=== PATIENT | female | born 1945 | race Caucasian/White ===

== ENCOUNTER 2022-08-03 14:01 | Outpatient (CLI) | payer MEDICARE, BC | END 2022-08-03 14:02 | disposition home or self-care (01) | LOC: BICRAD 14:01 | PROVIDERS: ATTEND Family Medicine | DX: R05.9 Cough, unspecified (principal) | CPT/HCPCS: 71046 ==

== ENCOUNTER 2024-06-30 22:37 | Emergency (ER) | payer MEDICARE, BC ==
[2024-06-30] MEDS ORDERED: Phenazopyridine HCl 100 MG TAB ONE (23:10)
[2024-06-30 23:15] LABS: Bilirubin Negative (Negative); Blood, Urine 3+ (Negative); CAUTI Indications for Culture Dysuria,urgency,freq; Clarity Clear (Clear); Glucose, Urine (Dipstick) Normal (Negative); Ketone, Urine Negative (Negative); Leukocyte 250 Leu/uL (Negative); Nitrite Negative (Negative); Protein, Urine (Dipstick) Negative (Neg-Trace); Specific Gravity, Urine 1.009 (1.002-1.036); Squamous Epithelial 0-3 HPF (0-3); Urobilinogen Normal mg/dL (Less than 2)
[2024-06-30 23:19] LABS: Bacteria/HPF Rare-Few HPF (None Seen)
[2024-06-30 23:20] LABS: Urine Culture Reflex No No
[2024-06-30] MEDS ORDERED: Cephalexin 250 MG CAP ONE (23:34)
== END 2024-07-01 00:11 | disposition home or self-care (01) ==
LOC: ERS 22:37
DX: N39.0 Urinary tract infection, site not specified (principal); I10 Essential (primary) hypertension
CPT/HCPCS: 81001; 99283

== ENCOUNTER 2024-07-12 12:20 | Outpatient (CLI) | payer MEDICARE, BC ==
[2024-07-12] MEDS ORDERED: Iopamidol 370 76% 100 ML VIAL ONE (12:44)
== END 2024-07-12 12:21 | disposition home or self-care (01) ==
LOC: CT 12:20
PROVIDERS: ATTEND Family Medicine
DX: R51.9 Headache, unspecified (principal)
CPT/HCPCS: 36415; 70470; 82565; Q9967

== ENCOUNTER 2024-07-22 15:16 | Outpatient (CLI) | payer MEDICARE, BC | END 2024-07-22 15:17 | disposition home or self-care (01) | LOC: SCSMRI 15:16 | PROVIDERS: ATTEND Family Medicine | DX: R51.9 Headache, unspecified (principal); I67.89 Other cerebrovascular disease | CPT/HCPCS: 70553; 76376 ==

== ENCOUNTER 2024-07-29 09:26 | Inpatient (IN) | payer MEDICARE, BC ==
[2024-07-29 10:36] LABS: #Basophils Less than 0.03 10x3/uL (0.0-0.2); %Lymphocytes 7.5 % (21.0-51.0); %Monocytes 7.1 % (0.0-10.0); %Neutrophils 83.4 % (42.0-75.0); Hematocrit 32.7 % (36.0-47.0); Hemoglobin 11.2 g/dL (12.0-16.0); Mean Corpuscular HGB CONC 34.3 g/dL (32.0-36.0); Mean Corpuscular Hemoglobin 32.7 pg (27.0-31.0); Mean Corpuscular Volume 95.3 fL (78.0-98.0); Mean Platelet Volume 9.2 fL (7.4-10.4); Platelet Count 112 10x3/uL (130-400); RBC Distribution Width 13.8 % (11.5-14.5); Red Blood Cell (RBC) Count 3.43 mill/uL (4.20-5.40)
[2024-07-29] MEDS ORDERED: Iopamidol-370 76% 500 ML MDV (1 ML CHARGE) ONE (10:37)
[2024-07-29 10:46] LABS: ALT (SGPT) 17 U/L (8-55); AST (SGOT) 21 U/L (5-34); Albumin 3.6 g/dL (3.4-4.8); Alkaline Phosphatase 67 U/L (40-110); Anion Gap 11 mmol/L (10-20); BUN (Urea Nitrogen) 24 mg/dL (9.8-20.1); Bilirubin, Total 0.8 mg/dL (0.2-1.2); Calc. Creatinine Clearance 0 mL/min (70-130); Calcium 8.8 mg/dL (7.8-10.44); Carbon Dioxide 30 mmol/L (23-31); Chloride 101 mmol/L (98-107); Estimated GFR 41; Globulin 1.9 g/dL (2.4-3.5); Glucose 117 mg/dL (83-110); Potassium 3.6 mmol/L (3.5-5.1); Protein, Total 5.5 g/dL (5.8-8.1); Sodium 138 mmol/L (136-145)
[2024-07-29 10:48] LABS: Troponin I Less than 0.010 ng/mL (< 0.028)
[2024-07-29] MEDS ORDERED: Ondansetron ODT 4 MG TAB PO PRN (13:57)
[2024-07-29] MEDS ORDERED: Acetaminophen 325 MG TAB PO PRN (13:57)
[2024-07-29] MEDS ORDERED: Ondansetron PF 4 MG/2 ML Vial IVP PRN (13:57)
[2024-07-29] MEDS ORDERED: Acetaminophen 650 MG Suppository PR PRN (13:57)
[2024-07-29] MEDS ORDERED: cloNIDine 0.1 MG TAB PO PRN (16:14)
[2024-07-29] MEDS ORDERED: cloNIDine 0.1 MG TAB ONE (16:17)
[2024-07-29] MEDS: cloNIDine 0.1 MG TAB PO SCH (17:31)
[2024-07-29 18:11] VITALS: BMI 24.3
[2024-07-29] MEDS: Amitriptyline HCl 10 MG TAB PO SCH (21:10)
[2024-07-30 04:27] LABS: #Basophils Less than 0.03 10x3/uL (0.0-0.2); %Eosinophils 1.5 % (0.0-10.0); %Lymphocytes 14.2 % (21.0-51.0); %Monocytes 9.2 % (0.0-10.0); %Neutrophils 75.1 % (42.0-75.0); Hemoglobin 10.1 g/dL (12.0-16.0); Mean Corpuscular HGB CONC 33.7 g/dL (32.0-36.0); Mean Corpuscular Hemoglobin 33.2 pg (27.0-31.0); Mean Corpuscular Volume 98.7 fL (78.0-98.0); Platelet Count 95 10x3/uL (130-400); RBC Distribution Width 13.8 % (11.5-14.5); Red Blood Cell (RBC) Count 3.04 mill/uL (4.20-5.40)
[2024-07-30 05:22] LABS: Anion Gap 12 mmol/L (10-20); BUN (Urea Nitrogen) 26 mg/dL (9.8-20.1); Calc. Creatinine Clearance 36 mL/min (70-130); Calcium 8.4 mg/dL (7.8-10.44); Carbon Dioxide 27 mmol/L (23-31); Chloride 105 mmol/L (98-107); Estimated GFR 41; Glucose 89 mg/dL (83-110); Potassium 3.8 mmol/L (3.5-5.1); Sodium 140 mmol/L (136-145)
[2024-07-30] MEDS ORDERED: Non-Formulary Item 1 EACH (Fluticasone Propionate [Fluticasone Propionate] 50 MCG Blst.W. IH PRN (07:40)
[2024-07-30] MEDS ORDERED: Non-Formulary Item 1 EACH (Timolol Maleate/Pf [Timolol Maleate 0.5% Eye Drop] 1 EACH Drop EA EYE SCH (09:00)
[2024-07-30] MEDS ORDERED: Pantoprazole DR 40 MG TAB PO SCH (09:00)
[2024-07-30] MEDS ORDERED: Fluticasone Propionate Nasal Spray 16 gm Bottle NASAL PRN (09:00)
[2024-07-30] MEDS ORDERED: Furosemide 20 MG TAB PO SCH (09:00)
[2024-07-30] MEDS: Furosemide 20 MG TAB PO SCH (09:03)
[2024-07-30] MEDS: HYDROcodone/Acetaminophen 5/325 mg Tablet PO PRN (09:05)
[2024-07-30] MEDS: Senokot S 8.6-50 MG TAB PO PRN (09:06)
[2024-07-30] MEDS: Pantoprazole DR 40 MG TAB PO SCH (09:22)
[2024-07-30] MEDS: Timolol 0.5% Ophth Soln 5 ml Bottle EA EYE SCH (09:23)
[2024-07-30] MEDS: Sodium Chloride 0.9% 1,000 ML IV SCH (14:54)
[2024-07-31 04:01] LABS: Anion Gap 10 mmol/L (10-20); BUN (Urea Nitrogen) 24 mg/dL (9.8-20.1); Calc. Creatinine Clearance 43 mL/min (70-130); Calcium 7.9 mg/dL (7.8-10.44); Carbon Dioxide 26 mmol/L (23-31); Chloride 110 mmol/L (98-107); Estimated GFR 51; Glucose 92 mg/dL (83-110); Potassium 4.8 mmol/L (3.5-5.1); Sodium 141 mmol/L (136-145)
[2024-07-31 04:07] LABS: Hematocrit 27.9 % (36.0-47.0); Hemoglobin 9.4 g/dL (12.0-16.0); Mean Corpuscular HGB CONC 33.7 g/dL (32.0-36.0); Mean Corpuscular Hemoglobin 32.9 pg (27.0-31.0); Mean Corpuscular Volume 97.6 fL (78.0-98.0); Mean Platelet Volume 9.2 fL (7.4-10.4); Platelet Count 83 10x3/uL (130-400); RBC Distribution Width 14.2 % (11.5-14.5); Red Blood Cell (RBC) Count 2.86 mill/uL (4.20-5.40)
[2024-07-31 05:09] LABS: Band 6 % (5-11); Large Platelets 2.2 % (0-5); Lymphocytes 28 % (21-51); Monocytes 5 % (0-10); Neutrophil 62 % (42-75); Platelet Adequacy Comment Platelets Decreased; RBC Morphology Within Normal Limits
[2024-07-31 11:50] VITALS: BP 142/75; TEMP 98
[2024-07-31] MEDS: Ketorolac Tromethamine 30 MG (1 mL) VIAL IVP SCH (13:25)
== END 2024-07-31 16:59 | disposition home or self-care (01) | DRG 92 ==
LOC: ERS 09:26 → ERHOLD 13:14 → 2SE 17:47 → OBSVTOIN 07-30 14:25
PROVIDERS: ADMIT Internal Medicine; ATTEND Internal Medicine
DX: R20.2 Paresthesia of skin (principal); D61.818 Other pancytopenia; K21.9 Gastro-esophageal reflux disease without esophagitis; Z96.653 Presence of artificial knee joint, bilateral; I12.9 Hypertensive chronic kidney disease with stage 1 through stage 4 chronic kidney disease, or unspecified chronic kidney disease; R42 Dizziness and giddiness; R51.9 Headache, unspecified; N18.30 Chronic kidney disease, stage 3 unspecified; Z88.0 Allergy status to penicillin; Z79.899 Other long term (current) drug therapy
CPT/HCPCS: 36415; 70496; 70498; 72141; 80048; 80053; 82607; 84484; 85025; 93005; 94760; J1885; J7030; Q9967

== ENCOUNTER 2024-09-23 09:35 | Observation (INO) | payer MEDICARE, BC ==
[2024-09-23 10:57] LABS: #Basophils Less than 0.03 10x3/uL (0.0-0.2); %Eosinophils 0.8 % (0.0-10.0); %Lymphocytes 7.5 % (21.0-51.0); %Monocytes 5.3 % (0.0-10.0); %Neutrophils 85.8 % (42.0-75.0); Hematocrit 32.9 % (36.0-47.0); Hemoglobin 11.2 g/dL (12.0-16.0); Mean Corpuscular Hemoglobin 34.3 pg (27.0-31.0); Mean Corpuscular Volume 100.6 fL (78.0-98.0); Mean Platelet Volume 8.3 fL (7.4-10.4); Platelet Count 124 10x3/uL (130-400); RBC Distribution Width 13.8 % (11.5-14.5); Red Blood Cell (RBC) Count 3.27 mill/uL (4.20-5.40)
[2024-09-23 11:16] LABS: ALT (SGPT) 14 U/L (8-55); AST (SGOT) 18 U/L (5-34); Albumin 3.7 g/dL (3.4-4.8); Alkaline Phosphatase 70 U/L (40-110); Anion Gap 9 mmol/L (10-20); BUN (Urea Nitrogen) 20 mg/dL (9.8-20.1); Bilirubin, Total 0.8 mg/dL (0.2-1.2); Calc. Creatinine Clearance 0 mL/min (70-130); Calcium 8.8 mg/dL (7.8-10.44); Carbon Dioxide 29 mmol/L (23-31); Chloride 107 mmol/L (98-107); Estimated GFR 56; Globulin 2.2 g/dL (2.4-3.5); Glucose 91 mg/dL (83-110); Potassium 4.3 mmol/L (3.5-5.1); Protein, Total 5.9 g/dL (5.8-8.1); Sodium 141 mmol/L (136-145)
[2024-09-23 11:17] LABS: INR-International Normal Ratio 0.9; PTT 40.2 sec (22.9-36.1); Prothrombin Time 12.4 sec (12.0-14.7)
[2024-09-23 11:22] LABS: Troponin I Less than 0.010 ng/mL (< 0.028)
[2024-09-23] MEDS ORDERED: Iopamidol-370 76% 500 ML MDV (1 ML CHARGE) ONE (12:53)
[2024-09-23] MEDS ORDERED: Magnevist 469MG/ML 20 ML VIAL ONE (13:34)
[2024-09-23] MEDS ORDERED: Acetaminophen 325 MG TAB PO PRN (14:27)
[2024-09-23] MEDS ORDERED: hydrALAZINE 20 MG/ML VIAL SLOW IVP PRN (14:27)
[2024-09-23] MEDS ORDERED: Aspirin Chewable 81 MG TAB ONE (15:27)
[2024-09-23] MEDS: Heparin 5,000 UNITS/ML VIAL SC SCH (17:19)
[2024-09-23 17:50] VITALS: BMI 23.3
[2024-09-23] MEDS: Atorvastatin Calcium 40 MG TAB PO SCH (20:58)
[2024-09-24 04:28] LABS: Anion Gap 12 mmol/L (10-20); BUN (Urea Nitrogen) 25 mg/dL (9.8-20.1); Calc. Creatinine Clearance 41 mL/min (70-130); Calcium 8.2 mg/dL (7.8-10.44); Carbon Dioxide 26 mmol/L (23-31); Cardiac Risk 3.8 (Less than 4.5); Chloride 106 mmol/L (98-107); Cholesterol 189 mg/dl (< 200 Desired); Estimated GFR 50; Glucose 89 mg/dL (83-110); HDL Cholesterol 50 mg/dL (>60 Neg Risk); LDL Cholesterol, Calculated 114 mg/dL; Potassium 4.4 mmol/L (3.5-5.1); Sodium 140 mmol/L (136-145); Triglycerides 123 mg/dL (Less than 150)
[2024-09-24 04:39] LABS: #Basophils Less than 0.03 10x3/uL (0.0-0.2); %Eosinophils 1.9 % (0.0-10.0); %Monocytes 11.6 % (0.0-10.0); %Neutrophils 66.5 % (42.0-75.0); Hematocrit 28.2 % (36.0-47.0); Hemoglobin 9.6 g/dL (12.0-16.0); Mean Platelet Volume 8.4 fL (7.4-10.4); Platelet Count 121 10x3/uL (130-400); RBC Distribution Width 13.7 % (11.5-14.5); Red Blood Cell (RBC) Count 2.82 mill/uL (4.20-5.40)
[2024-09-24] MEDS: Aspirin 325 mg Enteric Coated Tablet PO SCH (09:53)
[2024-09-24 16:20] VITALS: BP 121/71; TEMP 98.4
[2024-09-25] MEDS ORDERED: FLU (Fluad Triv) TS24-25 (65UP)/MF59C/PF 45 MCG/0.5 ML Syringe IM ONE (09:00)
== END 2024-09-24 17:40 | disposition home or self-care (01) ==
LOC: ERS 09:35 → ERHOLD 13:40 → 2SE 17:15
PROVIDERS: ADMIT Internal Medicine; ATTEND Internal Medicine
DX: H54.7 Unspecified visual loss (principal); I12.9 Hypertensive chronic kidney disease with stage 1 through stage 4 chronic kidney disease, or unspecified chronic kidney disease; N18.30 Chronic kidney disease, stage 3 unspecified; K21.9 Gastro-esophageal reflux disease without esophagitis; D61.818 Other pancytopenia; Z96.653 Presence of artificial knee joint, bilateral; Z86.69 Personal history of other diseases of the nervous system and sense organs; Z98.41 Cataract extraction status, right eye; Z98.42 Cataract extraction status, left eye; Z88.0 Allergy status to penicillin; Z79.51 Long term (current) use of inhaled steroids; Z79.82 Long term (current) use of aspirin; Z79.899 Other long term (current) drug therapy
CPT/HCPCS: 36415; 70450; 70496; 70498; 70553; 71045; 76376; 80048; 80053; 80061; 84484; 85025 ×2; 85610; 85730; 93005; 96372; 99285; G0378 ×3; J1644; Q9967

== ENCOUNTER 2024-12-12 13:14 | Outpatient (CLI) | payer MEDICARE, BC | END 2024-12-12 13:15 | disposition home or self-care (01) | LOC: MRI 13:14 | PROVIDERS: ATTEND Psychiatry & Neurology Neurology | DX: R51.9 Headache, unspecified (principal); R90.82 White matter disease, unspecified | CPT/HCPCS: 70553; 76376 ==